=== PATIENT | female | born 1975 | race Caucasian/White ===

== ENCOUNTER 2016-08-21 20:38 | Emergency (ER) | payer SELFPAY ==
[~2016-08-21] VITALS: Ht 165.1 cm; Wt 81.6 kg
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
[2016-08-22 00:08] VITALS: BP 0/0
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
--- OUTSIDE RECORDS SUMMARY | 2016-08-22 18:32 | XMS REPORT | CCD ---
Author Author SAVI STORM Organization Unknown Address [address] [facility] [address] [place] [address] Care Team Providers Care Foreign Trade Teacher Name Role Phone TERRAZAS, CATALINA DO Attphys TERRAZAS, CATALINA DO Prisurg Allergies Unknown or Not Available. Active Medications Unknown or Not Available. Problems Unknown or Not Available. Procedures Unknown or Not Available. Results Unknown or Not Available. Function Status Unknown or Not Available. History of Immunizations Unknown or Not Available. Plan of Treatment Unknown or Not Available. Social History Smoking Status Code Start Date End Date Current every day smoker [id number] Vital Signs Unknown or Not Available. Function Status Unknown or Not Available. Goals Unknown or Not Available. ASSESSMENTS Unknown or Not Available. Health Concerns Section Unknown or Not Available.
--- OUTSIDE RECORDS SUMMARY | 2016-08-22 18:32 | XMS REPORT | Continuity of Care Document ---
Demographics Preferred Language Unknown Marital Status Unknown Zoroastrianism Affiliation Unknown Race Unknown Ethnic Group Unknown Author Author [facility] Organization [facility] Address Unknown Phone Unavailable Allergies Medications Problems Procedures Results Encounters ACCT No. Visit Date/Time Discharge Status Pt. Type Provider Facility Loc./Unit Complaint [id number] 02/09/2016 18:04:34 [facility] Aime Jorge
== END 2016-08-22 00:08 | disposition home or self-care (01) ==
LOC: ER 20:42
DX: X50.0XXA Overexertion from strenuous movement or load, initial encounter; S66.912A Strain of unspecified muscle, fascia and tendon at wrist and hand level, left hand, initial encounter; Z90.49 Acquired absence of other specified parts of digestive tract; Z90.711 Acquired absence of uterus with remaining cervical stump
CPT/HCPCS: 73110; 99282